=== PATIENT | female | born 1940 | race Caucasian/White ===

== ENCOUNTER 2024-01-27 01:38 | Emergency (ER) | payer MEDICARE ==
[~2024-01-27] VITALS: Ht 167.6 cm; Wt 59.0 kg
[2024-01-27] MEDS: KETOROLAC TROMETHAMINE 30 MG INJ IM ONE (02:02)
[2024-01-27] MEDS: MORPHINE SULFATE 4 MG/1 ML DISP.SYRIN IM ONE (02:49)
[2024-01-27] MEDS ORDERED: ONDANSETRON ODT 4 MG TAB.RAPDIS ONE (02:51)
[2024-01-27] MEDS: ONDANSETRON ODT 4 MG TAB.RAPDIS SL ONE (02:52)
[2024-01-27 02:56] LABS: BASOPHILS # (AUTO) 0.1 K/UL (0.0-0.2); BASOPHILS % (AUTO) 0.6 % (0.0-2.0); EOSINOPHILS # (AUTO) 0.1 K/uL (0.0-0.7); EOSINOPHILS % (AUTO) 0.6 % (0.0-7.0); HEMATOCRIT 44.3 % (31.2-41.9); HEMOGLOBIN 15.4 g/dL (10.9-14.3); LYMPHOCYTES # (AUTO) 3.2 K/uL (0.8-4.8); MEAN CORPUSCULAR HEMOGLOBIN 30.9 uug (24.7-32.8); MEAN CORPUSCULAR HGB CONC 35 g/dL (32.3-35.6); MEAN CORPUSCULAR VOLUME 88.5 fL (75.5-95.3); MONOCYTES # (AUTO) 0.3 K/uL (0.1-1.30); MONOCYTES % (AUTO) 3.4 % (0.0-11.0); NEUTROPHILS # (AUTO) 5.9 K/uL (1.8-8.9); NEUTROPHILS % (AUTO) 61.4 % (38.5-71.5); PLATELET COUNT (AUTO) 261 K/uL (179-408); RED CELL DISTRIBUTION WIDTH 13.6 % (12.3-17.7); WHITE BLOOD COUNT (AUTO) 9.5 K/uL (3.8-11.8)
[2024-01-27 03:04] LABS: DIFFERENTIAL COMMENT 1
[2024-01-27 03:09] LABS: CALCIUM 10.1 mg/dL (8.5-10.1); CARBON DIOXIDE 27 mmol/L (21-32); CHLORIDE 97 mmol/L (98-107); CREATININE 0.8 mg/dL (0.6-1.3); GLUCOSE 148 mg/dL (74-106); SODIUM SERUM 136 mmol/L (136-145); UREA NITROGEN, BLOOD 12 mg/dL (7-18)
[2024-01-27 03:20] LABS: ALANINE AMINOTRANSFERASE 23 U/L (14-59); ALBUMIN 4.2 g/dL (3.4-5.0); ALKALINE PHOSPHATASE 131 U/L (50-136); ASPARTATE AMINOTRANSFERASE 20 U/L (15-37); BILIRUBIN,TOTAL 0.7 mg/dL (0.2-1.0); TOTAL PROTEIN, SERUM 8.1 g/dL (6.4-8.2)
[2024-01-27] MEDS ORDERED: HYDR-3980 PO (05:26)
[2024-01-27] MEDS ORDERED: GABA-536 PO (05:26)
[2024-01-27 05:48] VITALS: BP 138/75; O2SAT 98
== END 2024-01-27 06:10 | disposition home or self-care (01) ==
LOC: ER 01:42
DX: S32.19XA Other fracture of sacrum, initial encounter for closed fracture (principal); M25.552 Pain in left hip; Z79.899 Other long term (current) drug therapy; Z60.2 Problems related to living alone; Z88.0 Allergy status to penicillin; X58.XXXA Exposure to other specified factors, initial encounter; Y93.89 Activity, other specified; Y92.89 Other specified places as the place of occurrence of the external cause; Y99.8 Other external cause status
CPT/HCPCS: 99285; 72192; 80053; 85025; 96372 ×2; J1885; J2270; 36415; A4606; A4663; Q0162

== ENCOUNTER 2024-06-24 20:00 | Emergency (ER) | payer MEDICARE ==
[~2024-06-24] VITALS: Ht 167.6 cm; Wt 59.0 kg
[~2024-06-24 20:00] MED LIST: GABA-536 PO; HYDR-3980 PO
[2024-06-24] MEDS ORDERED: KETOROLAC TROMETHAMINE 15 MG INJ ONE (21:01)
[2024-06-24] MEDS: KETOROLAC TROMETHAMINE 15 MG INJ IM ONE (21:20)
[2024-06-24 21:27] LABS: BASOPHILS # (AUTO) 0.1 K/UL (0.0-0.2); BASOPHILS % (AUTO) 0.8 % (0.0-2.0); EOSINOPHILS # (AUTO) 0.1 K/uL (0.0-0.7); EOSINOPHILS % (AUTO) 1.5 % (0.0-7.0); HEMATOCRIT 43.1 % (31.2-41.9); HEMOGLOBIN 14.7 g/dL (10.9-14.3); LYMPHOCYTES # (AUTO) 3.9 K/uL (0.8-4.8); LYMPHOCYTES % (AUTO) 40.6 % (20.5-51.5); MEAN CORPUSCULAR HGB CONC 34 g/dL (32.3-35.6); MEAN CORPUSCULAR VOLUME 90.5 fL (75.5-95.3); MONOCYTES # (AUTO) 0.5 K/uL (0.1-1.30); MONOCYTES % (AUTO) 5.2 % (0.0-11.0); NEUTROPHILS % (AUTO) 51.9 % (38.5-71.5); PLATELET COUNT (AUTO) 219 K/uL (179-408); RED BLOOD CELL COUNT(AUTO) 4.76 MIL/uL (3.63-4.92); RED CELL DISTRIBUTION WIDTH 13.5 % (12.3-17.7); WHITE BLOOD COUNT (AUTO) 9.6 K/uL (3.8-11.8)
[2024-06-24 21:41] LABS: DIFFERENTIAL COMMENT 1
[2024-06-24 21:43] LABS: CALCIUM 9.8 mg/dL (8.5-10.1); CARBON DIOXIDE 23 mmol/L (21-32); CHLORIDE 100 mmol/L (98-107); CREATININE 0.7 mg/dL (0.6-1.3); GLUCOSE 133 mg/dL (74-106); POTASSIUM 3.7 mmol/L (3.5-5.1); SODIUM SERUM 135 mmol/L (136-145); UREA NITROGEN, BLOOD 15 mg/dL (7-18)
[2024-06-24 21:50] LABS: ALANINE AMINOTRANSFERASE 16 U/L (14-59); ALBUMIN 4.3 g/dL (3.4-5.0); ALKALINE PHOSPHATASE 134 U/L (50-136); ASPARTATE AMINOTRANSFERASE 13 U/L (15-37); BILIRUBIN,TOTAL 0.7 mg/dL (0.2-1.0)
[2024-06-24 21:53] LABS: *BILIRUBIN,URIN NEGATIVE (NEGATIVE); *BLOOD, URINE NEGATIVE (NEGATIVE); *CLARITY,URINE CLEAR (CLEAR); *COLOR,URINE YELLOW (YELLOW); *KETONES,URINE TRACE (NEGATIVE); *PROTEIN,URINE NEGATIVE (NEGATIVE); *UROBILINOGEN,URINE 0.2 E.U./dl (NORMAL); LEUKOCYTE ESTERASE ,URINE TRACE (NEGATIVE); NITRITE, URINE NEGATIVE (NEGATIVE); PH,URINE 7.5 (5.0-8.0); UGLUCOSE NEGATIVE (NEGATIVE)
[2024-06-24] MEDS ORDERED: MORPHINE SULFATE 2 MG/1 ML DISP.SYRIN ONE (22:25)
[2024-06-24] MEDS ORDERED: LORAZEPAM 2 MG/1 ML VIAL ONE (22:25)
[2024-06-24] MEDS ORDERED: ONDANSETRON 4 MG/2 ML VIAL ONE (22:25)
[2024-06-24] MEDS: MORPHINE SULFATE 2 MG/1 ML DISP.SYRIN IV ONE (22:30)
[2024-06-24] MEDS: LORAZEPAM 2 MG/1 ML VIAL IV ONE (22:30)
[2024-06-24 22:33] LABS: BACTERIA,URINE FEW /HPF (NONE SEEN); RBC,URINE 0-3 /HPF (0-3); SQUAMOUS EPITHELIAL CELL,UR FEW /HPF (NONE SEEN); WBC,URINE 0-3 /HPF (0-3)
[2024-06-24] MEDS: ONDANSETRON 4 MG/2 ML VIAL IV ONE (22:39)
[2024-06-24] MEDS ORDERED: GABA-532 PO (23:17)
[2024-06-25 05:04] VITALS: O2SAT 96
[2024-06-25] MEDS ORDERED: NITR100C6 PO (06:46)
== END 2024-06-25 07:40 | disposition home or self-care (01) ==
LOC: ER 20:04
DX: N39.0 Urinary tract infection, site not specified (principal); Z88.0 Allergy status to penicillin; Z60.2 Problems related to living alone; Z79.891 Long term (current) use of opiate analgesic; Z79.899 Other long term (current) drug therapy
CPT/HCPCS: 80053; 81001; 85025; 36415; 72128; 72131; 99285; 96374; 96375; 96372; 83605; J1885; J2060; J2405; J2270; A4606; A4663